=== PATIENT | female | born 1980 | race Caucasian/White ===

== ENCOUNTER 2025-01-06 11:39 | Outpatient (CLI) | payer OTHER | END 2025-01-06 11:40 | disposition home or self-care (01) | LOC: CSHMAMMO 11:39 | PROVIDERS: ATTEND Family Medicine | DX: Z12.31 Encounter for screening mammogram for malignant neoplasm of breast (principal); Z80.3 Family history of malignant neoplasm of breast; N64.89 Other specified disorders of breast | CPT/HCPCS: 77063; 77067 ==

== ENCOUNTER 2025-01-10 09:57 | Outpatient (CLI) | payer OTHER | END 2025-01-10 09:58 | disposition home or self-care (01) | LOC: CSHMAMMO 09:57 | PROVIDERS: ATTEND Family Medicine | DX: N64.89 Other specified disorders of breast (principal) | CPT/HCPCS: G0279 ==